=== PATIENT | male | born 1960 | race Caucasian/White ===

== ENCOUNTER 2017-12-06 17:47 | Observation (INO) | payer OTHER ==
[~2017-12-06] VITALS: Ht 175.3 cm; Wt 64.0 kg
[~2017-12-06 17:47] MED LIST: ADLT ASA LOW81 MG OR; ASPIRIN EC81 MG PO; AUGMENTIN250 MG PO; BACTRIM DS1 TAB PO; CELEXA40 MG PO; CEPHALEXIN500 MG PO; CITALOPRAM40 MG PO; FLEXERIL PO; HYDROXYZINE HCL10 MG PO; INDERAL 20MG TA20 MG OR; KEFLEX500 M1 PO; KLONOPIN0.5 MG PO; LORTAB 10-325 M1 TAB PO; LORTAB 5/3255 MG PO; LORTAB5 PO; LOSARTAN POT50 MG PO; MEDDOSEPAK PO; METHIMAZOLE10 MG PO; NO MEDS; NORCO1 TA1 PO; SEROQUEL100 MG PO; SEROQUEL25 MG PO; TRAZODONE100 MG PO; ULTRAM50 M1 PO; VENTOLIN HFA IN; XANAX0.25 MG PO; ZITHROMAX250 MG PO
--- NOTE | 2017-12-06 17:47 | NUR ---
IMMENDIATELY TO TX ROOM VIA STRETCHER . AWAKE AND ALERT
--- NOTE | 2017-12-06 18:04 | NUR ---
PT PROVIDED ASA AND NTG ORDERED, RESTS IN THE STRETCHER, UNCOMFORTABLE.
[2017-12-06 18:10] LABS: HEMATOCRIT 46.9 % (39.0-50.0); HEMOGLOBIN 16.7 g/dl (14.0-18.0); IMMATURE GRANULOCYTES 0.2 % (0.0-5.0); MEAN CELL VOLUME 91.6 fL CALC (80.0-100.0); MEAN CORPUSCULAR HGB 32.6 pG CALC (26.0-32.0); MEAN CORPUSCULAR HGB CONC 35.6 g/L CALC (32.0-36.0); NEUT# 7.35 thou/uL (1.82-7.42); RED BLOOD COUNT 5.12 mill/uL (4.70-6.10); RED CELL DISTRI WIDTH 13.2 % (11.5-15.5)
[2017-12-06 18:26] LABS: ALBUMIN 4.6 g/dL (3.2-5.0); ALKALINE PHOSPHATASE 123 u/l (38-126); ANION GAP 18 (6-22 (CALC)); BILIRUBIN, TOTAL 1.3 mg/dL (0.0-1.4); BUN 11 mg/dL (9-20); BUN/CREATININE RATIO 10 (12-20 (CALC)); CARBON DIOXIDE 22 mmol/l (22-30); CHLORIDE 105 mmol/l (95-108); CREATININE 1.2 mg/dL (0.7-1.3); GFR > 60 ML/MIN (>=60 (CALC)); GFR FOR AFR.AMER. > 60 ML/MIN (>=60 (CALC)); LIPASE 28 u/l (23-300); POTASSIUM 4.1 mmol/l (3.5-5.1); SGOT/AST 37 u/l (17-59); SGPT/ALT 35 u/l (21-72); SODIUM 141 mmol/l (137-146)
[2017-12-06 18:38] LABS: MYOGLOBIN 51 ng/mL (0 - 121)
--- NOTE | 2017-12-06 19:14 | NUR ---
PT STATES TORADOL HAS HELPED HIS PAIN LEVEL, NOW A 4. PT RESTS IN THE STRETCHER IN NO ACUTE DISTRESS.
[2017-12-06 20:30] LABS: URINE BILIRUBIN - DIPSTICK NEGATIVE (NEGATIVE); URINE BLOOD DIPSTICK NEGATIVE (NEGATIVE); URINE COLOR YELLOW; URINE GLUCOSE - DIPSTICK NEGATIVE (NEGATIVE); URINE KETONE NEGATIVE (NEGATIVE); URINE LEUK ESTERASE NEGATIVE (NEGATIVE); URINE NITRITE - DIPSTICK NEGATIVE (Negative); URINE PROTEIN - DIPSTICK NEGATIVE (NEG-TRACE); URINE UROBILINOGEN - DIPSTICK 0.2 E.U./dL (0.2)
--- NOTE | 2017-12-06 20:36 | NUR ---
PT STATES THAT HE STILL HAS SOME PAIN TO BACK AND CHEST, BUT DENIES NEED FOR PAIN MED AT THIS TIME.
[2017-12-06 20:37] LABS: URINE CLARITY CLEAR
[2017-12-06 21:50] VITALS: BP 103/63
--- NOTE | 2017-12-06 21:50 | NUR ---
PT ARRIVED TO FLOOR VIA STRETCHER WITH ER NURSE YANCY. PT AMBULATED TO BED, WEIGHT OBTAINED ON BED SCALE; 63.9 KG. VITALS OBTAINED. PT ORIENTED TO ROOM AND CALL LIGHT SYSTEM. PT DENIES ANY PAIN. RESP EVEN AND UNLABORED. LUNGS CLEAR BILAT. ABD SOFT, ACTIVE BOWEL SOUNDS. PT REPORTS LAST BM WAS TODAY. TELE ON. PEDAL PULSES PALPATED BILAT. IV RFA PATENT; NO REDNESS OR EDEMA NOTED. PT ENCOURAGED TO CALL FOR ASSISTANCE TO AMBULATE. FREQUENT ROUNDS MADE. CALL LIGHT WITHIN REACH.
--- NOTE | 2017-12-06 21:55 | NUR ---
PT TAKEN TO ROOM 283 WITHOUT INCIDENT, REPORT WAS TO FIFI.
[2017-12-06 22:40] VITALS: BP 87/59
--- NOTE | 2017-12-06 22:45 | NUR ---
PHONE CALL MADE TO DR LOBATO, VOICE MESSAGE LEFT.
[2017-12-06 23:04] VITALS: BP 99/61
--- NOTE | 2017-12-06 23:07 | NUR ---
SPOKE TO DR LOBATO DUE TO PT BP: 87/[address] NOTIFIED PT BP HAS COME UP TO 99/61 HR 59 AFTER BOLUS FROM ER. PT ASYMPTOMATIC. PT INFORMED TO STAY IN BED WHILE BP IS LOW, AND TO CALL FOR ASSISTANCE. CALL LIGHT WITHIN REACH.
--- NOTE | 2017-12-07 04:30 | NUR ---
PT WOKE FOR MORNING VITALS; PT OFFERS NO COMPLAINTS. RESP EVEN AND UNLABORED. TELE ON. IV PATENT. CALL LIGHT WITHIN REACH.
[2017-12-07 05:47] VITALS: BP 95/62
[2017-12-07 06:24] LABS: MEAN CELL VOLUME 93.7 fL CALC (80.0-100.0); MEAN CORPUSCULAR HGB CONC 35.2 g/L CALC (32.0-36.0); RED BLOOD COUNT 4.15 mill/uL (4.70-6.10); RED CELL DISTRI WIDTH 13.2 % (11.5-15.5)
[2017-12-07 06:26] LABS: HEMATOCRIT 38.9 % (39.0-50.0); HEMOGLOBIN 13.7 g/dl (14.0-18.0)
[2017-12-07 06:41] LABS: ANION GAP 11 (6-22 (CALC)); BUN 15 mg/dL (9-20); BUN/CREATININE RATIO 13 (12-20 (CALC)); CALCULATED LDLCHOLESTEROL 63 mg/dL (62-129 (CALC)); CARBON DIOXIDE 25 mmol/l (22-30); CHLORIDE 109 mmol/l (95-108); CHOLESTEROL HDL RATIO 3.1 (<4.4 (CALC)); CREATININE 1.1 mg/dL (0.7-1.3); GFR > 60 ML/MIN (>=60 (CALC)); GFR FOR AFR.AMER. > 60 ML/MIN (>=60 (CALC)); HDL CHOLESTEROL 36 mg/dL (>=40); SODIUM 141 mmol/l (137-146); TOTAL CHOLESTEROL 112 mg/dl (0-199); TOTAL TRIGLYCERIDES 64 mg/dl (30-149); VLDL CHOLESTROL 13 mg/dl (8-62 (CALC))
--- NOTE | 2017-12-07 07:09 | NUR ---
REPORT RECEIVED BY RADHA. PT IS RESTING IN BED WITH NO S/S OF DISTRESS NOTED. CALL LIGHT IN REACH.
--- NOTE | 2017-12-07 08:06 | NUR ---
ASSESSMENT DONE. TELE IN PLACE. RESPS EVEN AND UNLABORED. PT IS A&O X3. PT DENIES PAIN AT THIS TIME. NS 100ML/HR INFUSING WELL. PT DENIES NEEDS AT THIS TIME. SAFETY PRECAUTIONS REINFORCED AND CALL LIGHT IN REACH.
[2017-12-07 08:21] VITALS: BP 115/71
--- NOTE | 2017-12-07 11:04 | NUR ---
STARTED A NEW IV RH #22 PT TOLERATED WELL. MEDICATED PT WITH ZOFRAN FOR NAUSEA. PT DENIES ANY OTHER NEEDS AT THIS TIME. CALL LIGHT IN REACH.
--- NOTE | 2017-12-07 12:03 | NUR ---
PT IS EATING HIS LUNCH AND STATED THAT ZOFRAN HELPED. PT DENIES ANY OTHER NEEDS AT THIS TIME. CALL LIGHT IN REACH.
[2017-12-07] MEDS ORDERED: XARELTO20 MG PO (12:37)
[2017-12-07 12:45] VITALS: BP 125/75
--- NOTE | 2017-12-07 14:09 | NUR ---
Discharge instructions given. Patient verbalizes understanding of same. Discharged in stable condition via Wheelchair to Home with staff . All belongings sent with pt.
== END 2017-12-07 14:05 | disposition home or self-care (01) ==
LOC: ED 17:47 → ED-I 19:40 → ED 20:29 → MS2 20:30
PROVIDERS: Emergency Medicine; ADMIT Internal Medicine; ATTEND Internal Medicine
DX: R07.2 Precordial pain (principal); I48.0 Paroxysmal atrial fibrillation; I10 Essential (primary) hypertension; G62.9 Polyneuropathy, unspecified; E05.90 Thyrotoxicosis, unspecified without thyrotoxic crisis or storm; F41.9 Anxiety disorder, unspecified; F32.9 Major depressive disorder, single episode, unspecified; I25.2 Old myocardial infarction; F17.210 Nicotine dependence, cigarettes, uncomplicated; Z23 Encounter for immunization
CPT/HCPCS: G0378; J1650

== ENCOUNTER 2018-02-07 14:32 | Emergency (ER) | payer OTHER ==
[~2018-02-07] VITALS: Ht 175.3 cm; Wt 59.0 kg
[~2018-02-07 14:32] MED LIST changes: +XARELTO20 MG PO
[2018-02-07] MEDS ORDERED: QUETIAPINE FUM400 M1 PO (14:53)
[2018-02-07] MEDS ORDERED: MIRTAZAPINE15 MG PO (14:53)
[2018-02-07] MEDS ORDERED: HYDROXYZ HCL25 MG PO (14:54)
[2018-02-07 16:04] LABS: HEMATOCRIT 44.4 % (39.0-50.0); HEMOGLOBIN 15.6 g/dl (14.0-18.0); IMMATURE GRANULOCYTES 0.4 % (0.0-5.0); MEAN CELL VOLUME 93.5 fL CALC (80.0-100.0); MEAN CORPUSCULAR HGB 32.8 pG CALC (26.0-32.0); MEAN CORPUSCULAR HGB CONC 35.1 g/L CALC (32.0-36.0); NEUT# 2.72 thou/uL (1.82-7.42); RED BLOOD COUNT 4.75 mill/uL (4.70-6.10); RED CELL DISTRI WIDTH 13.1 % (11.5-15.5)
[2018-02-07 16:18] LABS: ALBUMIN 3.8 g/dL (3.2-5.0); ALKALINE PHOSPHATASE 88 u/l (38-126); ANION GAP 12 (6-22 (CALC)); BILIRUBIN, TOTAL 0.9 mg/dL (0.0-1.4); BUN 13 mg/dL (9-20); BUN/CREATININE RATIO 11 (12-20 (CALC)); CARBON DIOXIDE 28 mmol/l (22-30); CHLORIDE 101 mmol/l (95-108); CREATININE 1.1 mg/dL (0.7-1.3); GFR > 60 ML/MIN (>=60 (CALC)); GFR FOR AFR.AMER. > 60 ML/MIN (>=60 (CALC)); POTASSIUM 4.4 mmol/l (3.5-5.1); SGOT/AST 24 u/l (17-59); SODIUM 136 mmol/l (137-146); TOTAL PROTEIN 6.7 g/dL (6.3-8.2)
[2018-02-07 16:30] VITALS: BP 136/99
== END 2018-02-07 16:35 | disposition home or self-care (01) ==
LOC: ED 14:32
PROVIDERS: Emergency Medicine
DX: R53.1 Weakness (principal); I48.91 Unspecified atrial fibrillation; Z79.01 Long term (current) use of anticoagulants; F17.210 Nicotine dependence, cigarettes, uncomplicated; I10 Essential (primary) hypertension; Z86.73 Personal history of transient ischemic attack (TIA), and cerebral infarction without residual deficits

== ENCOUNTER 2019-02-14 17:40 | Observation (INO) | payer OTHER ==
[~2019-02-14] VITALS: Ht 175.3 cm; Wt 64.0 kg
[~2019-02-14 17:40] MED LIST changes: +HYDROXYZ HCL25 MG PO; +MIRTAZAPINE15 MG PO; +QUETIAPINE FUM400 M1 PO
[2019-02-14] MEDS ORDERED: CLONAZEPAM0.5 M1 PO (18:14)
[2019-02-14 18:53] LABS: HEMATOCRIT 47.3 % (39.0-50.0); HEMOGLOBIN 16.5 g/dl (14.0-18.0); IMMATURE GRANULOCYTES 0.3 % (0.0-5.0); MEAN CELL VOLUME 93.7 fL CALC (80.0-100.0); MEAN CORPUSCULAR HGB 32.7 pG CALC (26.0-32.0); MEAN CORPUSCULAR HGB CONC 34.9 g/L CALC (32.0-36.0); NEUT# 4.38 thou/uL (1.82-7.42); RED BLOOD COUNT 5.05 mill/uL (4.70-6.10)
[2019-02-14 19:07] LABS: ALBUMIN 4.4 g/dL (3.2-5.0); AMYLASE 60 u/l (30-110); ANION GAP 13 (6-22 (CALC)); BILIRUBIN, TOTAL 1.1 mg/dL (0.0-1.4); BUN 14 mg/dL (9-20); BUN/CREATININE RATIO 11 (12-20 (CALC)); CARBON DIOXIDE 26 mmol/l (22-30); CHLORIDE 100 mmol/l (95-108); CREATININE 1.2 mg/dL (0.7-1.3); GFR > 60 ML/MIN (>=60 (CALC)); GFR FOR AFR.AMER. > 60 ML/MIN (>=60 (CALC)); LIPASE 38 u/l (23-300); POTASSIUM 4.1 mmol/l (3.5-5.1); SGOT/AST 24 u/l (17-59); SODIUM 135 mmol/l (137-146)
[2019-02-14 19:08] LABS: ALKALINE PHOSPHATASE 158 u/l (38-126)
[2019-02-14 19:19] LABS: MYOGLOBIN 60 ng/mL (0 - 121)
[2019-02-14 20:11] LABS: TSH, 3RD GENERATION 0.32 uIU/mL (0.47 - 4.68)
[2019-02-14 21:32] LABS: URINE BILIRUBIN - DIPSTICK NEGATIVE (NEGATIVE); URINE BLOOD DIPSTICK NEGATIVE (NEGATIVE); URINE COLOR YELLOW; URINE GLUCOSE - DIPSTICK NEGATIVE (NEGATIVE); URINE KETONE NEGATIVE (NEGATIVE); URINE LEUK ESTERASE NEGATIVE (NEGATIVE); URINE NITRITE - DIPSTICK NEGATIVE (Negative); URINE PROTEIN - DIPSTICK NEGATIVE (NEG-TRACE); URINE SPECIFIC GRAVITY 1.015; URINE UROBILINOGEN - DIPSTICK 0.2 E.U./dL (0.2)
[2019-02-14 22:10] VITALS: BP 135/78
[2019-02-15 04:00] VITALS: BP 83/51
[2019-02-15 05:29] VITALS: BP 108/70
[2019-02-15 08:33] VITALS: BP 108/72
[2019-02-15 12:03] LABS: HEMATOCRIT 44.6 % (39.0-50.0); HEMOGLOBIN 15.6 g/dl (14.0-18.0); IMMATURE GRANULOCYTES 0.2 % (0.0-5.0); MEAN CELL VOLUME 94.7 fL CALC (80.0-100.0); MEAN CORPUSCULAR HGB 33.1 pG CALC (26.0-32.0); NEUT# 2.39 thou/uL (1.82-7.42); RED BLOOD COUNT 4.71 mill/uL (4.70-6.10); RED CELL DISTRI WIDTH 13.1 % (11.5-15.5)
[2019-02-15] MEDS ORDERED: ELAVIL25 M1 PO (12:29)
[2019-02-15] MEDS ORDERED: XARELTO10 MG PO (12:29)
[2019-02-15] MEDS ORDERED: LOPRESSOR25 MG PO (12:29)
[2019-02-15] MEDS ORDERED: METHIMAZOLE5 MG PO (12:29)
[2019-02-15 12:40] LABS: ANION GAP 11 (6-22 (CALC)); BUN 14 mg/dL (9-20); BUN/CREATININE RATIO 11 (12-20 (CALC)); CARBON DIOXIDE 25 mmol/l (22-30); CHLORIDE 104 mmol/l (95-108); CREATININE 1.2 mg/dL (0.7-1.3); GFR > 60 ML/MIN (>=60 (CALC)); GFR FOR AFR.AMER. > 60 ML/MIN (>=60 (CALC)); POTASSIUM 4.4 mmol/l (3.5-5.1); SODIUM 136 mmol/l (137-146)
[2019-02-15 17:17] VITALS: BP 139/62
[2019-02-15 19:19] VITALS: BP 107/73
[2019-02-16 00:14] VITALS: BP 129/61
[2019-02-16 04:44] VITALS: BP 118/81
[2019-02-16 07:00] VITALS: BP 133/86
[2019-02-16 10:51] VITALS: BP 128/83
[2019-02-16 14:38] VITALS: BP 131/89
[2019-02-16] MEDS ORDERED: MEDDOSEPAK PO (14:51)
== END 2019-02-16 15:43 | disposition home or self-care (01) ==
LOC: ED 17:40 → ED-I 20:20 → ED 20:34 → MS2 20:35
PROVIDERS: Emergency Medicine; Nurse Practitioner Family; ADMIT Internal Medicine; ATTEND Internal Medicine
DX: I48.0 Paroxysmal atrial fibrillation (principal); G62.9 Polyneuropathy, unspecified; E05.90 Thyrotoxicosis, unspecified without thyrotoxic crisis or storm; J44.1 Chronic obstructive pulmonary disease with (acute) exacerbation; I10 Essential (primary) hypertension; F41.9 Anxiety disorder, unspecified; F32.9 Major depressive disorder, single episode, unspecified; M62.532 Muscle wasting and atrophy, not elsewhere classified, left forearm; T50.916A Underdosing of multiple unspecified drugs, medicaments and biological substances, initial encounter; F17.200 Nicotine dependence, unspecified, uncomplicated; Z91.128 Patient's intentional underdosing of medication regimen for other reason
CPT/HCPCS: G0378; Q9967; S0164

== ENCOUNTER 2020-11-10 06:34 | Day surgery (SDC) | payer OTHER ==
[~2020-11-10] VITALS: Ht 182.9 cm; Wt 67.1 kg
[~2020-11-10 06:34] MED LIST changes: +AMITRIPTYLIN25 MG PO; +BUSPAR10 M1 PO; +CLONAZEPAM0.5 M1 PO; +ELAVIL25 M1 PO; +LOPRESSOR25 MG PO; +METHIMAZOLE5 MG PO; +METOPROL TAR25 MG PO; +XARELTO10 MG PO
[2020-11-10 08:44] VITALS: BP 128/78
== END 2020-11-10 08:55 | disposition home or self-care (01) ==
LOC: ENDO 06:34
PROVIDERS: ATTEND Surgery
DX: Z12.11 Encounter for screening for malignant neoplasm of colon (principal); D12.0 Benign neoplasm of cecum; D12.3 Benign neoplasm of transverse colon; D12.5 Benign neoplasm of sigmoid colon; K63.89 Other specified diseases of intestine; I10 Essential (primary) hypertension; I48.91 Unspecified atrial fibrillation; F17.210 Nicotine dependence, cigarettes, uncomplicated; Z79.01 Long term (current) use of anticoagulants

== ENCOUNTER 2021-11-11 17:13 | Emergency (ER) | payer OTHER ==
[2021-11-11] VITALS (7 sets, daily range): BP systolic 112–134; BP diastolic 73–92
[~2021-11-11] VITALS: Ht 182.9 cm; Wt 62.4 kg
[2021-11-11 17:42] LABS: HEMATOCRIT 42.3 % (39.0-50.0); HEMOGLOBIN 14.5 g/dl (14.0-18.0); MEAN CORPUSCULAR HGB 33.3 pG CALC (26.0-32.0); MEAN CORPUSCULAR HGB CONC 34.3 g/dL CAL (32.0-36.0); NEUT# 3.54 thou/uL (1.82-7.42); RED BLOOD COUNT 4.36 mill/uL (4.70-6.10); RED CELL DISTRI WIDTH 13.3 % (11.5-15.5)
[2021-11-11 18:04] LABS: ALBUMIN 3.9 g/dL (3.2-5.0); ALKALINE PHOSPHATASE 99 u/l (38-126); ANION GAP 7 (6-22 (CALC)); BILIRUBIN, TOTAL 1.7 mg/dL (0.0-1.4); BUN 10 mg/dL (9-20); BUN/CREATININE RATIO 9 (12-20 (CALC)); C-REACTIVE PROTEIN < 0.5 mg/dL (0-0.9); CARBON DIOXIDE 27 mmol/l (22-30); CHLORIDE 102 mmol/l (95-108); CREATININE 1.2 mg/dL (0.7-1.3); GFR FOR AFR.AMER. > 60 ML/MIN (>=60 (CALC)); GFR OTHER RACES > 60 ML/MIN (>=60 (CALC)); POTASSIUM 4.1 mmol/l (3.5-5.1); SGOT/AST 19 u/l (17-59); SODIUM 132 mmol/l (137-146); TOTAL PROTEIN 7.1 g/dL (6.3-8.2)
[2021-11-11] MEDS ORDERED: MELOXICAM7.5 MG PO (18:40)
[2021-11-11] MEDS ORDERED: PREDNISONE20 MG PO (18:40)
== END 2021-11-11 18:46 | disposition home or self-care (01) ==
LOC: ED 17:13
PROVIDERS: Nurse Practitioner
DX: M12.831 Other specific arthropathies, not elsewhere classified, right wrist (principal); I10 Essential (primary) hypertension; I48.91 Unspecified atrial fibrillation; F17.200 Nicotine dependence, unspecified, uncomplicated

== ENCOUNTER 2022-06-20 13:37 | Inpatient (IN) | payer OTHER ==
[~2022-06-20] VITALS: Ht 182.9 cm; Wt 68.0 kg
[~2022-06-20 13:37] MED LIST changes: +MELOXICAM7.5 MG PO; +PREDNISONE20 MG PO
[2022-06-20 15:52] LABS: BASO% 0.4 % (0-3); EOS% 1.8 % (0-8); HEMATOCRIT 46.9 % (39.0-50.0); HEMOGLOBIN 15.7 g/dl (14.0-18.0); IMMATURE GRANULOCYTES 0.1 % (0.0-5.0); LYMPH% 11.9 % (15-41); MEAN CELL VOLUME 95.9 fL CALC (80.0-100.0); MEAN CORPUSCULAR HGB 32.1 pG CALC (26.0-32.0); MEAN CORPUSCULAR HGB CONC 33.5 g/dL CAL (32.0-36.0); MONO% 5.7 % (2-13); NEUT# 6.76 thou/uL (1.82-7.42); NEUT% 80.1 % (42-76); RED BLOOD COUNT 4.89 mill/uL (4.70-6.10)
[2022-06-20 16:05] LABS: ALBUMIN 4.5 g/dL (3.2-5.0); ALKALINE PHOSPHATASE 152 u/l (38-126); ANION GAP 11 (6-22 (CALC)); BILIRUBIN, TOTAL 1.1 mg/dL (0.2-1.3); BUN 15 mg/dL (8-23); BUN/CREATININE RATIO 12 (12-20 (CALC)); CARBON DIOXIDE 27 mmol/l (22-30); CHLORIDE 104 mmol/l (95-108); CREATININE 1.2 mg/dL (0.7-1.3); GFR FOR AFR.AMER. > 60 ML/MIN (>=60 (CALC)); GFR OTHER RACES > 60 ML/MIN (>=60 (CALC)); POTASSIUM 4.8 mmol/l (3.5-5.1); SGOT/AST 42 u/l (19-48); SODIUM 137 mmol/l (137-146); TOTAL PROTEIN 7.6 g/dL (6.3-8.2)
[2022-06-20 18:37] VITALS: BP 168/87
[2022-06-20 22:56] VITALS: BP 125/65
[2022-06-20 23:15] VITALS: BP 107/63
[2022-06-20 23:30] VITALS: BP 129/73
[2022-06-20 23:45] VITALS: BP 126/83
[2022-06-21] VITALS (7 sets, daily range): BP systolic 80–148; BP diastolic 43–81
[2022-06-21] MEDS ORDERED: KEFLEX500 MG PO (10:53)
[2022-06-21] MEDS ORDERED: LORTAB 1010 MG PO (10:54)
== END 2022-06-21 15:30 | disposition home or self-care (01) | DRG 505 ==
LOC: ED 13:37 → ED-I 14:46 → ED 15:44 → MS2 15:45
PROVIDERS: Family Medicine; ADMIT Internal Medicine; ATTEND Internal Medicine
PROC: 0QSL04Z Reposition Right Tarsal with Internal Fixation Device, Open Approach (ICD-10-PCS; principal; 2022-06-20)
DX: S92.061A Displaced intraarticular fracture of right calcaneus, initial encounter for closed fracture (principal); I10 Essential (primary) hypertension; E05.90 Thyrotoxicosis, unspecified without thyrotoxic crisis or storm; F41.9 Anxiety disorder, unspecified; F32.A Depression, unspecified; G62.9 Polyneuropathy, unspecified; F17.200 Nicotine dependence, unspecified, uncomplicated; W13.2XXA Fall from, out of or through roof, initial encounter; Y93.H9 Activity, other involving exterior property and land maintenance, building and construction; Y92.008 Other place in unspecified non-institutional (private) residence as the place of occurrence of the external cause; I48.0 Paroxysmal atrial fibrillation
CPT/HCPCS: J0131; J0690; J1650

== ENCOUNTER 2023-06-03 10:20 | Emergency (ER) | payer OTHER ==
[~2023-06-03] VITALS: Ht 182.9 cm; Wt 58.0 kg
[~2023-06-03 10:20] MED LIST changes: +KEFLEX500 MG PO; +LORTAB 1010 MG PO
[2023-06-03] MEDS ORDERED: ONDANSETRON 4 MG/TAB ODT PO ONE (10:35)
[2023-06-03 10:48] VITALS: BP 163/106
[2023-06-03 11:00] VITALS: BP 153/113
[2023-06-03 11:05] LABS: BASO% 0.4 % (0-3); HEMATOCRIT 51.6 % (39.0-50.0); IMMATURE GRANULOCYTES 0.3 % (0.0-5.0); LYMPH% 7.5 % (15-41); MEAN CELL VOLUME 93.8 fL CALC (80.0-100.0); MEAN CORPUSCULAR HGB CONC 34.1 g/dL CAL (32.0-36.0); MONO% 7.5 % (2-13); NEUT# 6.23 thou/uL (1.82-7.42); NEUT% 84.3 % (42-76); RED BLOOD COUNT 5.5 mill/uL (4.70-6.10); RED CELL DISTRI WIDTH 13.5 % (11.5-15.5)
[2023-06-03 11:17] LABS: HEMOGLOBIN 17.6 g/dl (14.0-18.0)
[2023-06-03 11:21] LABS: ALKALINE PHOSPHATASE 108 u/l (38-126); BUN 22 mg/dL (8-23); BUN/CREATININE RATIO 16 (12-20 (CALC)); CHLORIDE 103 mmol/l (95-108); CREATININE 1.4 mg/dL (0.7-1.3); GFR FOR AFR.AMER. > 60 ML/MIN (>=60 (CALC)); GFR OTHER RACES 51 ML/MIN (>=60 (CALC)); LIPASE 29 u/l (23-300); SGOT/AST 43 u/l (19-48); SODIUM 139 mmol/l (137-146)
[2023-06-03] MEDS ORDERED: ONDANSETRON HCl 4 MG/2 ML SDV IV ONE (11:25)
[2023-06-03] MEDS ORDERED: SODIUM CHLORIDE 0.9% 1,000 ML IV ONE (11:25)
[2023-06-03 11:26] LABS: ALBUMIN 4.8 g/dL (3.2-5.0); ANION GAP 16 (6-22 (CALC)); BILIRUBIN, TOTAL 1.2 mg/dL (0.2-1.3); CARBON DIOXIDE 24 mmol/l (22-30); TOTAL PROTEIN 8.6 g/dL (6.3-8.2)
[2023-06-03 11:30] VITALS: BP 161/106
[2023-06-03 12:01] VITALS: BP 156/87
[2023-06-03 12:30] VITALS: BP 149/86
[2023-06-03] MEDS ORDERED: ZOFRAN4 MG/TAB PO (14:34)
[2023-06-03] MEDS ORDERED: IMODIUM A-D2 M3 PO (14:34)
[2023-06-03] MEDS ORDERED: TAM75CAP PO (14:34)
[2023-06-03 15:00] VITALS: BP 149/86
== END 2023-06-03 15:00 | disposition home or self-care (01) ==
LOC: ED 10:20
PROVIDERS: Family Medicine
DX: J11.1 Influenza due to unidentified influenza virus with other respiratory manifestations (principal); I10 Essential (primary) hypertension; I48.91 Unspecified atrial fibrillation; G62.9 Polyneuropathy, unspecified; Z87.891 Personal history of nicotine dependence; Z20.822 Contact with and (suspected) exposure to COVID-19
CPT/HCPCS: Q9967

== ENCOUNTER 2023-06-13 10:27 | Emergency (ER) | payer OTHER ==
[~2023-06-13] VITALS: Ht 182.9 cm; Wt 68.0 kg
[~2023-06-13 10:27] MED LIST changes: +IMODIUM A-D2 M3 PO; +TAM75CAP PO; +ZOFRAN4 MG/TAB PO
[2023-06-13] MEDS ORDERED: PREDNISONE50 MG PO (10:57)
[2023-06-13] MEDS ORDERED: PERMETHRIN5 % EX (10:57)
[2023-06-13] MEDS ORDERED: ZYRTEC10 M5 PO (10:57)
[2023-06-13 11:07] VITALS: BP 136/94
== END 2023-06-13 11:08 | disposition home or self-care (01) ==
LOC: ED 10:27
DX: R21 Rash and other nonspecific skin eruption (principal); I10 Essential (primary) hypertension; I48.91 Unspecified atrial fibrillation; G62.9 Polyneuropathy, unspecified